=== PATIENT | female | born 1985 | race Caucasian/White ===

== ENCOUNTER 2017-09-23 12:54 | Emergency (ER) | payer MEDICAID, OTHER ==
[~2017-09-23] VITALS: Ht 157.5 cm; Wt 59.0 kg
[2017-09-23 14:10] VITALS: BP 113/59
== END 2017-09-23 16:42 | disposition home or self-care (01) ==
LOC: ER 13:01
DX: J32.9 Chronic sinusitis, unspecified (principal); Z88.1 Allergy status to other antibiotic agents; Z88.8 Allergy status to other drugs, medicaments and biological substances